=== PATIENT | male | born 1955 | race Asian ===

== ENCOUNTER 2020-10-21 08:42 | Emergency (ER) | payer OTHER ==
[~2020-10-21] VITALS: Ht 165.1 cm; Wt 70.0 kg
--- NOTE | 2020-10-21 08:44 | NUR ---
PT BROUGHT IN BY [place] FROM HOME WITH CHIEF COMPALINT OF LOW BACK PAIN STARTING LAST NIGHT WHEN BENT OVER. PT DENIES NUMBNESS, TINGLING, LOSS OF BOWEL CONTROL, CP, OR SHORTNESS OF BREATH.
--- NOTE | 2020-10-21 09:20 | NUR ---
ERMD AT BEDSIDE FOR EVALUATION
[2020-10-21] MEDS ORDERED: KETOROLAC 15 MG/1ML IVPush ONE (09:30)
[2020-10-21] MEDS ORDERED: METHOCARBAMOL 750 MG TABLET PO ONE (09:30)
[2020-10-21] MEDS ORDERED: HYDROcodone/APAP 5/325 TABLET PO ONE ×2 (09:30→11:30)
[2020-10-21] MEDS ORDERED: KETOROLAC 30 MG/1 ML IVPush ONE (09:30)
[2020-10-21] MEDS ORDERED: METHOCARBAMOL 750 MG TABLET ONE (09:37)
[2020-10-21] MEDS ORDERED: HYDROcodone/APAP 5/325 TABLET ONE ×2 (09:37→11:25)
[2020-10-21] MEDS ORDERED: KETOROLAC 30 MG/1 ML ONE (09:37)
--- NOTE | 2020-10-21 10:33 | NUR ---
ICE PACK APPLIED
[2020-10-21 11:05] VITALS: BP 106/71
--- NOTE | 2020-10-21 11:21 | NUR ---
ERMD AT BEDSIDE TO DISCUSS POC
[2020-10-21] MEDS ORDERED: HYDROmorphone 2 MG/ML, 1ML ONE (12:43)
[2020-10-21] MEDS ORDERED: HYDROmorphone 1 MG/ML, 1ML INJ IV ONE (13:00)
== END 2020-10-21 13:57 | disposition home or self-care (01) ==
LOC: ED 13:50
DX: M54.5 Low back pain (principal)
CPT/HCPCS: 96374; 96375; 99284; J1170; J1885